=== PATIENT | female | born 1970 | race Caucasian/White ===

== ENCOUNTER → 2018-04-09 | Day surgery (SDC) | payer OTHER ==
[2018-04-02 15:28] LABS: BASOPHILS % 0.4 % (0.0-1.0); EOSINOPHILS # (AUTO) 0.2 (0.0-0.4); EOSINOPHILS % 2.2 % (0.0-6.0); HEMATOCRIT 43.6 % (34.2-44.1); HEMOGLOBIN 14.7 g/dL (12.0-16.0); LYMPHOCYTES # (AUTO) 2.4 (1.0-3.2); LYMPHOCYTES % 28.5 % (18.0-39.1); MEAN CORPUSCULAR HEMOGLOBIN 30.9 pg (28-32); MEAN CORPUSCULAR HGB CONC 33.7 g/dL (31-35); MEAN CORPUSCULAR VOLUME 91.6 fL (81-99); MONOCYTES # (AUTO) 0.7 (0.2-0.8); MONOCYTES % 7.8 % (4.4-11.3); NEUTROPHILS # (AUTO) 5.1 (2.1-6.9); NEUTROPHILS % 60.9 % (38.7-80.0); PLATELET COUNT 217 x10e3/uL (140-360); RED BLOOD COUNT 4.76 x10e6/uL (3.6-5.1); RED CELL DISTRIBUTION WIDTH 12.6 % (11.7-14.4)
--- NOTE | 2018-04-02 15:41 | Diagnostic Imaging Report ---
EXAM: XR CHEST 2 VIEWS DATE: 04/02/2018 2:51 PM INDICATION: Preoperative, hallux valgus COMPARISON: None FINDINGS: Lines and Tubes: None Heart and Mediastinum: No acute cardiomediastinal findings. Lungs and Pleura: No significant pleural effusion, pneumothorax, or focal consolidation. Bones and Soft Tissues: No acute findings. IMPRESSION: 1. No acute cardiopulmonary findings. Signed by: Dr. Michael Montero MD on 04/02/2018 3:37 PM
[2018-04-02 15:50] LABS: ANION GAP 11.9 mmol/L (8-16); BLOOD UREA NITROGEN 18 mg/dL (7-26); BUN/CREATININE RATIO 30 (6-25); CALCIUM 9.3 mg/dL (8.4-10.2); CARBON DIOXIDE 28 mmol/L (22-29); CHLORIDE 101 mmol/L (98-107); EST GLOMERULAR FILTRATION RATE > 60 ML/MIN (60-); GLUCOSE 94 mg/dL (74-118); POTASSIUM 3.9 mmol/L (3.5-5.1); SODIUM 137 mmol/L (136-145)
[~2018-04-09] MED LIST: BETAMETHASONE DISODIUM PHOS 6 MG/ML VIAL ONE; BUPIVACAINE HCL 0.5% 10ML MPF VIAL INJ ONE; BUPIVACAINE HCL 0.5% INJ 30 ML VIAL INJ ONE; CEFAZOLIN SOD 2 GM/D5W 50ML 50 ML IV ONE; DEXAMETHASONE SOD PHOS INJ 4 MG/ML VIAL ONE; FENTANYL CITRATE/PF 100MCG/2 ML INJ ONE; HYDROMORPHONE 2MG/ML 2 MG/ML ML ONE; KETOROLAC TROMETHAMINE 30 MG/ML VIAL ONE; LIDOCAINE HCL 1% LOCAL INJ 20 ML VIAL ONE; LIDOCAINE HCL 2% LOCAL INJ 5 ML SDV VIAL INJ ONE; MIDAZOLAM HCL 2 MG/2 ML VIAL ONE; MUPIROCIN 2% OINT 22 GM TUBE ONE; ONDANSETRON HCL INJ 2 MG/ML VIAL ONE; PROPOFOL IV EMULSION 10 MG/ML 20 ML VIAL ONE; SEVOFLURANE INHAL SOLN 250 ML PEN BTL ONE; SINEMET 25-1001 EACH PO; ULTRAM 50MG50 MG PO
--- OUTSIDE RECORDS SUMMARY | 2018-04-09 05:24 | XMS REPORT ---
Author [facility] Address Unknown Phone Unavailable Care Team Providers Care Quality Cloth Tester Name Role Phone DARIAN CROWELL Unavailable Unavailable Payers Payer Name Policy Type Policy Number Effective Date Expiration Date Problems This patient has no known problems. Allergies, Adverse Reactions, Alerts Allergy Name Allergy Type Status Severity Reaction(s) Onset Date Inactive Date Treating Clinician Comments aspirin DA Active U 2018-03-05 00:00:00 aspirin DA Active U 2017-09-15 00:00:00 Medications This patient has no known medications. Results Test Description Test Time Test Comments Text Results Atomic Results Result Comments CHEST 2 VIEWS 2018-04-02 15:37:00 [place] [address] Patient Name: KENNY VAIL MR #: [id number] : 1970 Age/Sex: 47/F Req #: [id number] Adm Physician: Ordered by: DARIAN CROWELL DPM Report #: [id number] Location: OR Room/Bed: Procedure: [id number] DX/CHEST 2 VIEWS Exam Date: 04/02/18 Exam Time: 1503 REPORT STATUS: Signed EXAM: XR CHEST 2 VIEWS DATE: 04/02/2018 2:51 PM IND ICATION: Preoperative, hallux valgus COMPARISON: None FINDINGS: Lines and Tubes: None Heart and Mediastinum: No acute cardiomediastinal findings. Lungs and Pleura: No significant pleural effusion, pneumothorax, or focal consolidation. Bones and Soft Tissues: No acute findings. IMPRESSION: 1. No acute cardiopulmonary findings. Signed by: Dr. Michael Montero MD on 04/02/2018 3:37 PM Dictated By: MICHAEL MONTERO MD [id number] Transcribed By: SUSAN on 04/02/18 1537 COPY TO: DARIAN CROWELL DPM
--- NOTE | 2018-04-09 10:04 | Operative Report ---
DATE OF PROCEDURE: April 09, 2018 PREOPERATIVE DIAGNOSES: 1. Painful hallux valgus deformity, left foot. 2. Painful contracted hammertoe, fourth digit, left. 3. Painful contracted hammertoe, fifth digit, left. 4. Plantar fasciitis, left foot. 5. Tarsal tunnel syndrome, left foot. POSTOPERATIVE DIAGNOSES: 1. Painful hallux valgus deformity, left foot. 2. Painful contracted hammertoe, fourth digit, left. 3. Painful contracted hammertoe, fifth digit, left. 4. Plantar fasciitis, left foot. 5. Tarsal tunnel syndrome, left foot. OPERATIVE PROCEDURES: 1. Santiago bunionectomy with screw fixation, left foot. 2. Arthroplasty, fourth digit with Fer wire fixation of fourth digit, left foot. 3. Arthroplasty, fifth digit. 4. Endoscopic plantar fasciotomy, left foot. 5. Neurolysis, tibial nerve, left foot. 6. Neurolysis, lateral plantar nerve, left foot. 7. Neurolysis, medial plantar nerve, left foot. 8. Intraoperative use of fluoroscopy. 9. Trigger point shot of cortisone. 10. Application of posterior splint. ANESTHESIA: General. HEMOSTASIS: Pneumatic thigh tourniquet at 350 mmHg. PROCEDURE IN DETAIL: Patient was taken into the operating room and placed on the operating room table in the supine position. Following induction of general anesthesia by the anesthesiologist, Webril wraps were placed on the patient's left thigh, followed by application of left thigh tourniquet. The left lower extremity was then prepped and draped in the usual aseptic manner, and the following procedures were then performed: Procedure #1: Santiago bunionectomy with screw fixation, left foot. Attention was directed to the dorsomedial aspect of the first MPJ where a 6-cm linear incision was performed. Incision was deepened down to the joint capsule. Longitudinal capsulotomy was then performed exposing the dorsomedial exostosis of the first metatarsal head. Via use of an oscillating saw, dorsomedial exostosis was excised from the operation site in toto. A V-osteotomy was then performed from medial to lateral. Capital fragment was then transpositioned laterally upon adequate surgical and anatomical reduction. Utilizing proper AO technique, a 2.0, 14-mm cortical screw in conjunction with a buried 0.045 K-wire was used to achieve stability at the osteotomy site. All redundant bone medially was excised via the use of an oscillating saw and rotating bur. Procedures #2 and #3: Arthroplasty, fourth and fifth digits with K-wire fixation of fourth. Attention was then directed to the dorsal aspect of the above-mentioned toes where a 3-cm linear incision was performed. Incision was deepened down to the joint capsule. A transverse capsulotomy was then performed exposing the head of the proximal phalanges. Via use of an oscillating saw, head of the proximal phalanges were excised from the operation site in toto. Fourth toe was still noted to be contracted, so a 0.045 K-wire was introduced up to the metatarsophalangeal joint to achieve proper anatomic reduction. Procedure #4: Endoscopic plantar fasciotomy. Attention was then directed to the medial aspect of left heel where a stab incision was performed 5 cm from the posterior aspect, 2 cm from the plantar aspect of the left heel. Incision was then deepened via blunt dissection. A spatula was then introduced through the medial portal and a stab incision was performed laterally. A cannula was then introduced medially to laterally. A camera was introduced through the lateral portal and then plantar fascia was clearly visualized. The medial one-half of the plantar fascia was then cut via the use of a triangle knife, and a plantar fascial release was felt, and muscle fibers were noted after the plantar fascia was cut. Procedure #5, #6, and #7: Neurolysis, tibial nerve; neurolysis, medial plantar nerve; and neurolysis, lateral plantar nerve. Attention was directed to the medial aspect of the left ankle where a curvilinear incision was performed overlying the derrell pedis. The incision was deepened via sharp and blunt dissection being careful to retract any vital structures and ligate any superficial vessels as necessary. Once the flexor retinaculum was clearly visualized, the flexor retinaculum was cut via the use of meticulous dissection utilizing Metzenbaum scissors. At this point, the tibial nerve was isolated and all adhesions surrounding the tibial nerve were released via blunt dissection. The incision was then deepened down to the derrell pedis. Derrell pedis was cut being careful to retract any vital structures, and the incision was carried down to the split of the medial and lateral plantar nerves and they were freed from any adhesions. All areas were then copiously flushed with sterile antibiotic solution and suctioned. Procedure #8: Intraoperative use of fluoroscopy was then used to make sure proper alignment and fixation was achieved. Closure was then obtained utilizing 3-0 Vicryl, 4-0 Vicryl, and 4-0 nylon for capsule, subcutaneous tissue, and skin respectively. Procedure #9: Trigger point shot of cortisone was given to the first and fourth interspace and also plantar aspect of the left heel to decrease the amount of inflammation. Then, approximately 15 mL of 0.5% plain Marcaine were used plus 5 mL of 1% Xylocaine plain were used to achieve local anesthesia of above-mentioned surgical area. Sterile dressing was applied. Upon release of the thigh tourniquet, blood hyperemia was noted immediately to all digits of the patient's left foot. Procedure #10: Application of posterior splint. A properly placed posterior splint was then applied keeping the foot at 90 degrees with respect to the leg to try to prevent any type of postop complications. Patient was then transferred from the OR to recovery room with vital signs stable and neurovascular status intact. No intraoperative complications were encountered. Blood loss from the surgery was minimal. Patient is to remain nonweightbearing with the aid of crutches, keep her foot elevated, and is to apply an ice pack to the ankle joint area. Job#: [id number]
[2018-04-09 10:15] VITALS: BP 134/73
--- NOTE | 2018-04-09 10:32 | Diagnostic Imaging Report ---
PROCEDURE:X-RAY LEFT FOOT, TWO VIEWS COMPARISON:None. INDICATIONS:POST FOOT SURGERY FINDINGS: See conclusion. CONCLUSION: AP and lateral post-operative views of the left foot with overlying bandage material show post-surgical changes with a wire and screw within the distal shaft of the first metatarsal and a surgical pin traversing the phalanges of the fourth ray. There is surrounding soft-tissue swelling consistent with recent surgery. Please refer to performing physician's notes for full details of this procedure. Dictated by: Bk Dorsey M.D. on 04/09/2018 at 10:42 Electronically approved by: Bk Dorsey M.D. on 04/09/2018 at 10:42
== END | disposition home or self-care (01) ==
LOC: OR 05:22
PROVIDERS: ATTEND Podiatrist Foot Surgery
DX: M20.12 Hallux valgus (acquired), left foot (principal); M20.42 Other hammer toe(s) (acquired), left foot; M72.2 Plantar fascial fibromatosis; G57.52 Tarsal tunnel syndrome, left lower limb; G58.8 Other specified mononeuropathies; G20 Parkinson's disease; F17.210 Nicotine dependence, cigarettes, uncomplicated; Z88.6 Allergy status to analgesic agent; Z01.810 Encounter for preprocedural cardiovascular examination; Z01.812 Encounter for preprocedural laboratory examination; Z01.818 Encounter for other preprocedural examination; Z79.82 Long term (current) use of aspirin
CPT/HCPCS: 28035; 28285 ×2; 28296; 29893; 36415; 64704 ×2; 71046; 73620; 80048; 85025; 93005; C1713; J0690; J0720; J1100; J1170; J1885; J2001 ×2; J2250; J2405; J2704

== ENCOUNTER 2018-05-12 14:25 | Emergency (ER) | payer OTHER ==
[~2018-05-12] VITALS: Ht 152.4 cm; Wt 38.6 kg
[~2018-05-12 14:25] MED LIST changes: -BETAMETHASONE DISODIUM PHOS 6 MG/ML VIAL ONE; -BUPIVACAINE HCL 0.5% 10ML MPF VIAL INJ ONE; -BUPIVACAINE HCL 0.5% INJ 30 ML VIAL INJ ONE; -CEFAZOLIN SOD 2 GM/D5W 50ML 50 ML IV ONE; -DEXAMETHASONE SOD PHOS INJ 4 MG/ML VIAL ONE; -FENTANYL CITRATE/PF 100MCG/2 ML INJ ONE; -HYDROMORPHONE 2MG/ML 2 MG/ML ML ONE; -KETOROLAC TROMETHAMINE 30 MG/ML VIAL ONE; -LIDOCAINE HCL 1% LOCAL INJ 20 ML VIAL ONE; -LIDOCAINE HCL 2% LOCAL INJ 5 ML SDV VIAL INJ ONE; -MIDAZOLAM HCL 2 MG/2 ML VIAL ONE; -MUPIROCIN 2% OINT 22 GM TUBE ONE; -ONDANSETRON HCL INJ 2 MG/ML VIAL ONE; -PROPOFOL IV EMULSION 10 MG/ML 20 ML VIAL ONE; -SEVOFLURANE INHAL SOLN 250 ML PEN BTL ONE; -ULTRAM 50MG50 MG PO
[2018-05-12] MEDS ORDERED: ULTRAM 50MG50 MG PO (14:55)
[2018-05-12 15:52] LABS: BASOPHILS % 0.3 % (0.0-1.0); EOSINOPHILS # (AUTO) 0.1 (0.0-0.4); EOSINOPHILS % 0.7 % (0.0-6.0); HEMATOCRIT 44.3 % (34.2-44.1); HEMOGLOBIN 15.4 g/dL (12.0-16.0); LYMPHOCYTES # (AUTO) 1.9 (1.0-3.2); MEAN CORPUSCULAR HEMOGLOBIN 30.7 pg (28-32); MEAN CORPUSCULAR HGB CONC 34.8 g/dL (31-35); MEAN CORPUSCULAR VOLUME 88.2 fL (81-99); MONOCYTES # (AUTO) 0.6 (0.2-0.8); MONOCYTES % 6.9 % (4.4-11.3); NEUTROPHILS # (AUTO) 6.2 (2.1-6.9); NEUTROPHILS % 70.6 % (38.7-80.0); PLATELET COUNT 232 x10e3/uL (140-360); RED BLOOD COUNT 5.02 x10e6/uL (3.6-5.1); RED CELL DISTRIBUTION WIDTH 12.4 % (11.7-14.4)
[2018-05-12 16:06] LABS: ALANINE AMINOTRANSFERASE 7 IU/L (0-55); ALBUMIN 4.2 g/dL (3.5-5.0); ALBUMIN/GLOBULIN RATIO 1.4 (0.8-2.0); ALKALINE PHOSPHATASE 63 IU/L (40-150); ANION GAP 14.1 mmol/L (8-16); BLOOD UREA NITROGEN 15 mg/dL (7-26); BUN/CREATININE RATIO 23 (6-25); CALCIUM 9.3 mg/dL (8.4-10.2); CARBON DIOXIDE 22 mmol/L (22-29); CHLORIDE 104 mmol/L (98-107); CREATININE, SERUM 0.64 mg/dL (0.57-1.11); EST GLOMERULAR FILTRATION RATE > 60 ML/MIN (60-); GLUCOSE 103 mg/dL (74-118); MAGNESIUM 2.4 MG/DL (1.3-2.1); POTASSIUM 4.1 mmol/L (3.5-5.1); SODIUM 136 mmol/L (136-145)
--- NOTE | 2018-05-12 16:17 | Diagnostic Imaging Report ---
Foot complete CPT code: 66334 Indication: Parkinson's, pain Technique: A.P., oblique and lateral views of the right foot obtained. A lateral image was repeated due to suboptimal positioning. Comparison: None Findings: The area of pain is not indicated or marked. Calcaneus is intact and normal in morphology. The midfoot is intact. No evidence of displaced fracture or dislocation involving any of the digits. No focal osseous lesions or degenerative changes. No radiopaque foreign bodies in the soft tissues. IMPRESSION: No acute osseous finding. Signed by: Dr. Montserrat Torre MD on 05/12/2018 4:14 PM
[2018-05-12 18:19] VITALS: BP 108/60
== END 2018-05-12 17:40 | disposition home or self-care (01) ==
LOC: ER 14:25
DX: S96.911A Strain of unspecified muscle and tendon at ankle and foot level, right foot, initial encounter (principal); M79.671 Pain in right foot; G20 Parkinson's disease
CPT/HCPCS: 36415; 80053; 83735; 85025; 99283